=== PATIENT | female | born 1990 | race Caucasian/White ===

== ENCOUNTER 2025-07-05 14:27 | Emergency (ER) | payer OTHER, SELFPAY ==
[~2025-07-05] VITALS: Ht 160 cm; Wt 65.9 kg
[~2025-07-05 14:27] MED LIST: NOCURR
[2025-07-05 14:30] VITALS: BP 117/83; PULSE 84; RESP 18; TEMP 98.6; O2SAT 99
[2025-07-05] MEDS ORDERED: DOXY-354 PO (17:03)
== END 2025-07-05 17:20 | disposition home or self-care (01) ==
LOC: EMS 14:27
DX: S80.861A Insect bite (nonvenomous), right lower leg, initial encounter (principal); L73.2 Hidradenitis suppurativa; F42.4 Excoriation (skin-picking) disorder; W57.XXXA Bitten or stung by nonvenomous insect and other nonvenomous arthropods, initial encounter; Y93.89 Activity, other specified; Y92.89 Other specified places as the place of occurrence of the external cause; Y99.8 Other external cause status
CPT/HCPCS: 99283; Z7502